=== PATIENT | female | born 1965 | race Caucasian/White ===

== ENCOUNTER 2023-09-28 06:32 | Outpatient (RCR) | payer OTHER, SELFPAY | END 2023-09-28 23:59 | disposition home or self-care (01) | LOC: RPT 06:32 | PROVIDERS: ATTENDING PHYSICIAN Student in an Organized Health Care Education/Training Program; FAMILY PHYSICIAN Family Medicine | DX: S82.851D Displaced trimalleolar fracture of right lower leg, subsequent encounter for closed fracture with routine healing (principal); R26.89 Other abnormalities of gait and mobility; Z73.6 Limitation of activities due to disability | CPT/HCPCS: 97010; 97110; 97112; 97140; 97162 ==

== ENCOUNTER 2023-10-26 06:38 | Outpatient (RCR) | payer OTHER, SELFPAY | END 2023-10-26 23:59 | disposition home or self-care (01) | LOC: RPT 06:38 | PROVIDERS: ATTENDING PHYSICIAN Student in an Organized Health Care Education/Training Program; FAMILY PHYSICIAN Family Medicine | DX: S82.851D Displaced trimalleolar fracture of right lower leg, subsequent encounter for closed fracture with routine healing (principal); Z73.6 Limitation of activities due to disability; R26.89 Other abnormalities of gait and mobility; R26.2 Difficulty in walking, not elsewhere classified; M62.81 Muscle weakness (generalized) | CPT/HCPCS: 97010; 97110; 97112; 97140; 97530 ==

== ENCOUNTER → 2023-11-03 08:52 | Outpatient (REF) | payer OTHER, SELFPAY | LOC: WDC 08:52 | PROVIDERS: ATTENDING PHYSICIAN Family Medicine | DX: Z12.31 Encounter for screening mammogram for malignant neoplasm of breast (principal) | CPT/HCPCS: 77063; 77067 ==

== ENCOUNTER 2023-11-28 16:04 | Outpatient (RCR) | payer OTHER, SELFPAY | END 2023-11-28 23:59 | disposition home or self-care (01) | LOC: RPT 16:04 | PROVIDERS: ATTENDING PHYSICIAN Student in an Organized Health Care Education/Training Program; FAMILY PHYSICIAN Family Medicine | DX: S82.851D Displaced trimalleolar fracture of right lower leg, subsequent encounter for closed fracture with routine healing (principal); Z73.6 Limitation of activities due to disability; R26.89 Other abnormalities of gait and mobility; R26.2 Difficulty in walking, not elsewhere classified; M62.81 Muscle weakness (generalized) | CPT/HCPCS: 97010; 97110; 97112; 97140; 97530 ==

== ENCOUNTER 2023-12-12 15:36 | Outpatient (RCR) | payer OTHER, SELFPAY | END 2023-12-17 16:09 | disposition home or self-care (01) | LOC: RPT 15:36 | PROVIDERS: ATTENDING PHYSICIAN Student in an Organized Health Care Education/Training Program; FAMILY PHYSICIAN Family Medicine | DX: S82.851D Displaced trimalleolar fracture of right lower leg, subsequent encounter for closed fracture with routine healing (principal); Z73.6 Limitation of activities due to disability; R26.89 Other abnormalities of gait and mobility; X58.XXXD Exposure to other specified factors, subsequent encounter; R26.2 Difficulty in walking, not elsewhere classified; M62.81 Muscle weakness (generalized) | CPT/HCPCS: 97110; 97140 ==

== ENCOUNTER → 2023-12-18 08:52 | Outpatient (REF) | payer OTHER, SELFPAY | LOC: RAD 08:52 | PROVIDERS: ATTENDING PHYSICIAN Internal Medicine Transplant Hepatology; FAMILY PHYSICIAN Family Medicine | DX: K74.69 Other cirrhosis of liver (principal) | CPT/HCPCS: 76700 ==

== ENCOUNTER 2024-02-25 06:18 | Day surgery (SDC) | payer OTHER, SELFPAY ==
[2024-02-22 08:53] LABS: % Basophils 0.8 % (0-2); % Immature Granulocytes 0.3 % (0-0.5); % Lymphocytes 29.5 % (20.5-51.1); % Monocytes 7.4 % (1.7-9.3); Absolute Basophils 0.1 10^3/uL (0-0.2); Absolute Eosinophils 0.2 10^3/uL (0-0.7); Absolute Lymphocytes 2.2 10^3/uL (1.2-3.4); Absolute Monocytes 0.6 10^3/uL (0.1-0.6); Absolute Neutrophils 4.4 10^3/uL (1.4-6.5); Hemoglobin 13.3 g/dL (12.0-16.0); Mean Corpuscular Hgb 29.1 pg (27.0-31.0); Mean Corpuscular Volume 83.2 fL (81.0-99.0); Mean Platelet Volume 10.7 fL (7.4-10.4); Nucleated Red Blood Cells % 0 %; Platelet Count 209 10^3/uL (130-400); Red Blood Cell Count 4.57 10^6/uL (4.20-5.40); Red Cell Dist. Width 13.1 % (11.5-14.5); White Blood Cell Count 7.4 10^3/uL (4.8-10.8)
[2024-02-22 09:32] VITALS: BMI 33.9
[2024-02-22 10:51] LABS: Blood Urea Nitrogen 11 mg/dl (7-17); Calcium 9.3 mg/dl (8.4-10.2); Carbon Dioxide 23 mmol/L (22-30); Chloride 105 mmol/L (98-107); Estimated Creatinine Clearance 112 ml/min; Glucose 120 mg/dl (70-99); Potassium 4.2 mmol/L (3.5-5.1); Sodium 141 mmol/L (135-145); eGFR > 60.00
[2024-02-25] VITALS (17 sets, daily range): BP systolic 119–147; BP diastolic 59–101; PULSE 87; O2SAT 97; BMI 33.9
[2024-02-25] MEDS: TYLENOL 1000 MG PO (08:22)
--- NOTE | 2024-02-25 11:02 | W.PN.UPDATE ---
Update Note
Progress Note Update
Patient s/p right ankle arthroscopy with hardware removal
-Post operative pain admission
-PT/OT, partial WB
-Ancef x 3 doses or until discharge if prior to 24 hours
-Dressings C/D/I
-Follow up 2 weeks
[2024-02-25] MEDS: DILAUDID 0.25 MG IV (12:00)
--- NOTE | 2024-02-25 12:23 | HPS.HSE ---
Family Physician
-
Family Physician: Sydney Ross
Chief Complaint
-
pain in R ankle
History of Present Illness
58yo F with HTN, CAD s/p PCI, HLD, Hx of R tracheomalleolar Fx of RLL in Apr 2023, had persistent dyscomfort with limited ROM due to hardware, had planned hardware removal and arthroscopy with [employer] Feeder on 02/25/24 and requested to be admitted for
PT/OT eval and pain mgmt
Patient declined fevers at home, remained without WBC elevation
Medical History
Past Medical History
Past Medical History: Reports Other
Additional Past Medical History:
see HPI
Past Surgical History: Reports Other
Additional Past Surgical History:
See HPI
Social History
Tobacco: Non-smoker
Alcohol: None
Drug: None
Family History
Family History: Not pertinent
Allergies / Home Medications
Allergies reflects when Allergies were last updated in [facility].
Home Medications with original date entered in [facility]
Allergy/Medication List:
Allergies
Allergy/AdvReac Type Severity Reaction Status Date / Time
aspirin [Aspirin] Allergy Pt on Verified 02/25/24 08:18
Aspir-81mg
daily/
able to
tolerate
w/o issues;
atenolol [Atenolol] Allergy 'corneal Verified 02/25/24 08:18
edema,
blurred
vision'
azithromycin Allergy PALPITATION Verified 02/25/24 08:18
S
latex [Latex] Allergy Rash Verified 02/25/24 08:18
lisinopril [Lisinopril] Allergy 'cough' Verified 02/25/24 08:18
morphine [Morphine] Allergy SYNCOPE; Verified 02/25/24 08:18
RASH;
ITCHING;
Home Medications
aspirin 81 mg tablet,delayed release 81 mg PO DAILY Blood Clot Prevention/Tx 05/21/23
ezetimibe 10 mg tablet 10 mg PO QPM High Cholesterol 05/21/23
metoprolol succinate 25 mg tablet,extended release 24 hr 25 mg PO QPM Heart Failure 05/21/23
rosuvastatin 40 mg tablet 40 mg PO QPM High Cholesterol 05/21/23
valsartan 80 mg tablet 80 mg PO DAILY Blood Pressure 05/21/23
pantoprazole 20 mg tablet,delayed release 20 mg PO DAILY Gastrointestinal Issue 02/22/24
Review of Systems
-
History Source: Patient
A 12 point ROS was completed and negative except as noted: Yes
Physical Exam
Vital Signs
Vital Signs
Temp Pulse Resp BP Pulse Ox
98.3 F 65 16 147/80 98
02/25/24 11:12 02/25/24 12:15 02/25/24 12:15 02/25/24 12:15 02/25/24 12:15
Physical Exam
General: No Apparent Distress
HEENT: NormoCephalic, Anicteric and Moist mucous membranes
Respiratory: Clear; No Wheezes, Rales or Crackles
Cardiac: S1/S2 and Regular Rhythm; No Murmur
GI: Soft, Non Tender and Non Distended
Genito-urinary: No costovertebral tender
Musculoskeletal: No Clubbing, No Cyanosis and No Edema
Skin: Warm
Neuro: Awake, Alert, Oriented and AO x 3
Psych: Calm
Laboratory Results
-
02/22/24 08:00
02/22/24 08:00
Data Reviewed
-
Lab Data: Labs Reviewed by me
Impression/Plan
-
A/P:
#s/p R ankle hardware removal and arthroscopy
Podiatry: outpatient follow up in 2 weeks
PerOP ppx Ancef x3
Surgical shoe, PT/OT
partial WBAE
Dressing changes
Pain mgmt
#Essential HTN
#Stable CAD
#HLD
con alondra meds
DVT ppx on lovenox
FUll code
I have spent at least 59min admitting the patient
--- NOTE | 2024-02-25 13:13 | PTCARENOTE ---
Patient received from PACU in bed; Patient on room air, oxygen saturation 98%; Patient states pain in right ankle is currently a six out of ten but is tolerable for her; Patient denies nausea/vomiting at this time; Right ankle adaptic, 4x4s, jen,
and reagan wrap clean/dry/intact; Patient can wiggle toes; Right pedal pulse +2 to palpation, capillary refill <3 seconds; Daughters at bedside; Call milner within reach; Bed in lowest position, wheels locked; Assessment ongoing
[2024-02-25] MEDS: ANCEF 5 IV ×2 (15:32→23:51)
[2024-02-25] MEDS: CRESTOR 40 MG PO (17:02)
[2024-02-25] MEDS: TOPROL XL 25 MG PO (17:02)
[2024-02-25] MEDS: ZETIA 10 MG PO (17:02)
[2024-02-25] MEDS: LOVENOX 40 MG SC (17:02)
[2024-02-25] MEDS: TYLENOL 650 MG PO ×2 (17:08→21:48)
[2024-02-26 02:57] VITALS: BP 144/83
--- NOTE | 2024-02-26 07:15 | W.PN.SURGUPD ---
Surgical Update
Surgical Update
Patient s/p right ankle arthroscopy with hardware removal 02/[address] Dukes
-Post operative pain admission
-PT/OT, partial WB in a surgical shoe. Patient has her own surgical shoe which she can use
-Ancef x 3 doses or until discharge if prior to 24 hours
-Patient is stable for discharge at this time
-Dressings C/D/I, to remain intact until follow up
-Follow up 2 weeks
--- NOTE | 2024-02-26 07:46 | W.PN.HOSP.TC ---
Today's Communication/Plan
-
DC
Assessment / Plan
Assessment / Plan
58yo F with HTN, CAD s/p PCI, HLD, Hx of R tracheomalleolar Fx of RLL in Apr 2023, had persistent dyscomfort with limited ROM due to hardware, had planned hardware removal and arthroscopy with Senior Data Developer on 02/25/24 and requested to be admitted for
PT/OT eval and pain mgmt, was able to tolerate pain mostly on tylenol, was ambulating in the room. Has surgical shoe and WC at home too. Medically stable for d/c as agreed with measurer machine.
A/P:
#s/p R ankle hardware removal and arthroscopy
Podiatry: outpatient follow up in 2 weeks
PerOP ppx Ancef x3
Surgical shoe, PT/OT
partial WBAE
Dressing changes
Pain mgmt
#Essential HTN
#Stable CAD
#HLD
con alondra meds
DVT ppx on lovenox
Full code
Anticipated Discharge: Today
Subjective/Interval History
-
Date of Service: February 26, 2024
Objective Data
-
Vital Signs:
Vital Signs
Temp Pulse Resp BP Pulse Ox
97.9 F 71 22 144/83 98
02/26/24 02:57 02/26/24 02:57 02/26/24 02:57 02/26/24 02:57 02/26/24 02:57
I&O
02/25/24 02/26/24 02/27/24
06:59 06:59 06:59
Intake Total 485 / 485
Balance 485 / 485
Review of Systems
-
History Source: Patient
All other systems: Reviewed and negative
Physical Exam
-
General: No Apparent Distress
HEENT: Normocephalic
Respiratory: Clear to Auscultation
Cardiac: Regular Rhythm
Neuro: Awake, Alert, Oriented and AO x 3
Psych: Calm
--- NOTE | 2024-02-26 07:47 | W.DCSUMMARY ---
Discharge Summary
Discharge Data
Date of Admission: 02/25/24
Date of Discharge: 02/26/24
-
Pending Results: No
Hospital Course
58yo F with HTN, CAD s/p PCI, HLD, Hx of R tracheomalleolar Fx of RLL in Apr 2023, had persistent dyscomfort with limited ROM due to hardware, had planned hardware removal and arthroscopy with Retirement Manager on 02/25/24 and requested to be admitted for
PT/OT eval and pain mgmt, was able to tolerate pain mostly on tylenol, was ambulating in the room. Has surgical shoe and WC at home too. Medically stable for d/c as agreed with specialty molder.
I have spent at least 39min preparing d/c
patient was managed for:
#s/p R ankle hardware removal and arthroscopy
#Essential HTN
#Stable CAD
#HLD
Discharge Plan
-
Patient Disposition: Home (Routine Discharge)
Diet: Regular
Activity: Other activity
Additional Activity: partial weight baring on RLE
Driving Restrictions: As prior to admission
Other Services: PT
Referrals:
Lang Dukes DPM [Active] - in two weeks
Sydney Rsos DO [Family Provider] -
Prescriptions:
New
tramadol 50 mg Tablet
50 mg PO Q6HPRN PRN (Reason: moderate pain) Qty: 12 0RF
Continued
valsartan 80 mg tablet
80 mg PO DAILY
aspirin 81 mg Tablet,Delayed Release (Dr/Ec)
81 mg PO DAILY
metoprolol succinate 25 mg tablet extended release 24 hr
25 mg PO QPM
ezetimibe 10 mg tablet
10 mg PO QPM
rosuvastatin 40 mg tablet
40 mg PO QPM
pantoprazole 20 mg tablet,delayed release (DR/EC)
20 mg PO DAILY
Discharge Orders:
Discharge Patient (As Directed); Ordered 02/26/24
Ordered By: Emory Barnes
Discharge Date and Time
Print Language: BENGALI
[2024-02-26 07:50] VITALS: BP 139/72
[2024-02-26] MEDS: TYLENOL 650 MG PO ×2 (09:01→13:27)
[2024-02-26] MEDS: ANCEF 5 IV (09:01)
[2024-02-26] MEDS: DIOVAN 80 MG PO (09:01)
[2024-02-26] MEDS: PROTONIX 20 MG PO (09:03)
[2024-02-26] MEDS: ASPIR LOW (ENTERIC COATED) 81 MG PO (09:03)
--- NOTE | 2024-02-26 11:39 | CM ---
Met with pt and her daughter at bedside
Pt lives alone in an apartment; 15 steps to enter, FF set-up
Was independent at baseline, ambulates with rolling walker
DME - rolling walker, wheel chair, commode, shower chair, shower rails
SNF/HH - has had [facility] in past
Has transport home thru [facility] - Workman's comp
PCP - Sydney Ross
Pharm - [facility]
Pts daughter will be available to assist as needed
OT/PT - recs no needs at this time
Plan - home no needs
[2024-02-26 14:29] VITALS: BP 127/57
== END 2024-02-26 16:15 | disposition home or self-care (01) ==
LOC: SDS 06:18
PROVIDERS: Student in an Organized Health Care Education/Training Program; ATTENDING PHYSICIAN Internal Medicine; FAMILY PHYSICIAN Family Medicine
DX: T84.84XA Pain due to internal orthopedic prosthetic devices, implants and grafts, initial encounter (principal); Y83.8 Other surgical procedures as the cause of abnormal reaction of the patient, or of later complication, without mention of misadventure at the time of the procedure; M65.871 Other synovitis and tenosynovitis, right ankle and foot
CPT/HCPCS: 29898; 20680; 36415; 80048; 85025; 93005; 97162; 97166

== ENCOUNTER 2024-03-28 07:59 | Outpatient (RCR) | payer OTHER, SELFPAY | END 2024-03-28 23:59 | disposition home or self-care (01) | LOC: RPT 07:59 | PROVIDERS: ATTENDING PHYSICIAN Student in an Organized Health Care Education/Training Program; FAMILY PHYSICIAN Family Medicine | DX: Z47.89 Encounter for other orthopedic aftercare; M25.571 Pain in right ankle and joints of right foot; S82.851D Displaced trimalleolar fracture of right lower leg, subsequent encounter for closed fracture with routine healing; Z73.6 Limitation of activities due to disability; R26.89 Other abnormalities of gait and mobility; R26.2 Difficulty in walking, not elsewhere classified | CPT/HCPCS: 97010; 97110; 97140; 97162 ==

== ENCOUNTER 2024-04-25 06:48 | Outpatient (RCR) | payer OTHER, SELFPAY | END 2024-04-25 23:59 | disposition home or self-care (01) | LOC: RPT 06:48 | PROVIDERS: ATTENDING PHYSICIAN Student in an Organized Health Care Education/Training Program; FAMILY PHYSICIAN Family Medicine | DX: Z47.89 Encounter for other orthopedic aftercare (principal); S82.851D Displaced trimalleolar fracture of right lower leg, subsequent encounter for closed fracture with routine healing (principal); M25.571 Pain in right ankle and joints of right foot; Z73.6 Limitation of activities due to disability; R26.89 Other abnormalities of gait and mobility; R26.2 Difficulty in walking, not elsewhere classified; R20.0 Anesthesia of skin | CPT/HCPCS: 97010; 97110; 97140; 97530 ==

== ENCOUNTER 2024-05-30 13:54 | Outpatient (RCR) | payer OTHER, SELFPAY | END 2024-05-30 23:59 | disposition home or self-care (01) | LOC: RPT 13:54 | PROVIDERS: ATTENDING PHYSICIAN Student in an Organized Health Care Education/Training Program; FAMILY PHYSICIAN Family Medicine | DX: Z47.89 Encounter for other orthopedic aftercare (principal); S82.851D Displaced trimalleolar fracture of right lower leg, subsequent encounter for closed fracture with routine healing (principal); M25.571 Pain in right ankle and joints of right foot; R26.89 Other abnormalities of gait and mobility; Z73.6 Limitation of activities due to disability; R26.2 Difficulty in walking, not elsewhere classified; R20.0 Anesthesia of skin | CPT/HCPCS: 97010; 97110; 97112; 97140; 97530 ==

== ENCOUNTER 2024-06-27 08:47 | Outpatient (RCR) | payer OTHER, SELFPAY | END 2024-06-27 23:59 | disposition home or self-care (01) | LOC: RPT 08:47 | PROVIDERS: ATTENDING PHYSICIAN Student in an Organized Health Care Education/Training Program; FAMILY PHYSICIAN Family Medicine | DX: S82.851D Displaced trimalleolar fracture of right lower leg, subsequent encounter for closed fracture with routine healing (principal); M25.571 Pain in right ankle and joints of right foot; R26.89 Other abnormalities of gait and mobility; X58.XXXD Exposure to other specified factors, subsequent encounter; Z73.6 Limitation of activities due to disability; R26.2 Difficulty in walking, not elsewhere classified; R20.0 Anesthesia of skin; Z47.89 Encounter for other orthopedic aftercare | CPT/HCPCS: 97010; 97110; 97112; 97140 ==

== ENCOUNTER 2024-07-23 16:04 | Outpatient (RCR) | payer OTHER, SELFPAY | END 2024-07-23 23:59 | disposition home or self-care (01) | LOC: RPT 16:04 | PROVIDERS: ATTENDING PHYSICIAN Student in an Organized Health Care Education/Training Program; FAMILY PHYSICIAN Family Medicine | DX: S82.851D Displaced trimalleolar fracture of right lower leg, subsequent encounter for closed fracture with routine healing (principal); M25.571 Pain in right ankle and joints of right foot; X58.XXXD Exposure to other specified factors, subsequent encounter; R26.89 Other abnormalities of gait and mobility; Z73.6 Limitation of activities due to disability; R26.2 Difficulty in walking, not elsewhere classified; R20.0 Anesthesia of skin; Z47.89 Encounter for other orthopedic aftercare | CPT/HCPCS: 97010; 97110; 97140 ==

== ENCOUNTER 2024-08-13 15:35 | Outpatient (RCR) | payer OTHER, SELFPAY | END 2024-08-14 07:32 | disposition home or self-care (01) | LOC: RPT 15:35 | PROVIDERS: ATTENDING PHYSICIAN Student in an Organized Health Care Education/Training Program; FAMILY PHYSICIAN Family Medicine | DX: S82.851D Displaced trimalleolar fracture of right lower leg, subsequent encounter for closed fracture with routine healing (principal); M25.571 Pain in right ankle and joints of right foot; X58.XXXD Exposure to other specified factors, subsequent encounter; R26.89 Other abnormalities of gait and mobility; Z73.6 Limitation of activities due to disability; R26.2 Difficulty in walking, not elsewhere classified; R20.0 Anesthesia of skin; Z47.89 Encounter for other orthopedic aftercare | CPT/HCPCS: 97010; 97110; 97140 ==

== ENCOUNTER 2024-08-22 06:19 | Day surgery (SDC) | payer OTHER, SELFPAY | END 2024-08-22 13:27 | disposition home or self-care (01) | LOC: GI 06:19 | PROVIDERS: ATTENDING PHYSICIAN Internal Medicine Gastroenterology | DX: Z12.11 Encounter for screening for malignant neoplasm of colon (principal); K64.8 Other hemorrhoids; K57.30 Diverticulosis of large intestine without perforation or abscess without bleeding; R12 Heartburn; K74.60 Unspecified cirrhosis of liver; K31.7 Polyp of stomach and duodenum; K31.89 Other diseases of stomach and duodenum; D12.4 Benign neoplasm of descending colon; D12.3 Benign neoplasm of transverse colon; K29.50 Unspecified chronic gastritis without bleeding; Z86.0100 Personal history of colon polyps, unspecified | CPT/HCPCS: 45385; 43239; 88305; 88342 ==

== ENCOUNTER → 2024-11-06 17:29 | Outpatient (REF) | payer OTHER, SELFPAY | LOC: WDC 17:29 | PROVIDERS: ATTENDING PHYSICIAN Family Medicine | DX: Z12.31 Encounter for screening mammogram for malignant neoplasm of breast (principal) | CPT/HCPCS: 77063; 77067 ==

== ENCOUNTER → 2025-02-25 08:06 | Outpatient (REF) | payer OTHER, SELFPAY | LOC: DHSLP 08:06 | PROVIDERS: ATTENDING PHYSICIAN Internal Medicine; FAMILY PHYSICIAN Family Medicine | DX: G47.33 Obstructive sleep apnea (adult) (pediatric) (principal) | CPT/HCPCS: 95800 ==